=== PATIENT | female | born 1935 | race Caucasian/White ===

== ENCOUNTER 2020-05-23 08:57 | Outpatient (CLI) | payer MEDICARE, OTHER, SELFPAY ==
--- NOTE | ~2020-05-23 | US_ITS ---
EXAMINATION: US retroperitoneal comp, US retroperitoneal duplex ltd EXAM DATE: 05/23/2020 09:45 INDICATION: I10 - Essential (primary) hypertension, stage II chronic kidney disease. TECHNIQUE: Multiple grayscale and Doppler images of the kidneys were obtained (by a technologist who performed the scan) and subsequently reviewed. Multiple grayscale and Doppler images of the kidneys a nd renal arteries were obtained. There is no prior study for comparison. FINDINGS: Right kidney: Renal cortical thinning. There is normal contour and echogenicity. It measures 7.7 x 3 .5 x 3.5 centimeters. There are no focal renal lesions identified. There is no hydronephrosis. Left kidney: Poorly visualized. There is normal contour and echogenicity. It measures 11.8 x 3.7 x 4 .1 centimeters. There is a cyst measuring 1.5 cm. There is no hydronephrosis. Bladder unremarkable. Ureteral jets were not visualized. The aorta peak systolic velocity is 98 cm/s. The right renal artery peak systolic velocity is 66 cm/s in the proximal segment, 24 cm/s in the mid segment, and 69 cm/s in the distal segment. The left daniela al artery peak systolic velocity is 102 cm/s in the proximal segment, 51 cm/s in the mid segment, and 41 cm/s in the distal segment. IMPRESSION: 1. Mild to moderate bilateral renal atrophy. 2. Renal artery Doppler velocities within normal limits. Reviewed, dictated and finalized at location A. SUPERVISOR IMPRESSION: 1. Mild to moderate bilateral renal atrophy. 2. Renal artery Doppler velocities within normal limits.
== END 2020-05-23 08:58 | disposition home or self-care (01) ==
PROVIDERS: Family Provider Internal Medicine; PCP Internal Medicine; Visit Provider Nurse Practitioner
DX: I12.9 Hypertensive chronic kidney disease with stage 1 through stage 4 chronic kidney disease, or unspecified chronic kidney disease (principal); N18.2 Chronic kidney disease, stage 2 (mild)
CPT/HCPCS: 76770; 93976

== ENCOUNTER 2020-05-28 14:37 | Outpatient (CLI) | payer MEDICARE, OTHER, SELFPAY ==
--- NOTE | ~2020-05-28 | XR_ITS ---
XR lumbar spine min 4V DATE: 05/28/2020 15:01 INDICATION: Low back pain TECHNIQUE: AP, lateral, bilateral oblique and coned lateral lumbosacral views COMPARISON: 06/03/2016 MRI lumbar spine FINDINGS: There is mild dextroscoliosis of the lumbar spine. Moderate osteopenia. No fracture or bone destruction is evident. The lumbar pedicles are intact. No spondylolysis or spond ylolisthesis is detected. There is degenerative disc disease throughout the lumbar and lumbosacral spine, particular severe at L4-5 and L5-S1. The sacral iliac joints are intact. Osteoarthritic changes at both hip joints. There is extensive calcification of the descending thoracic and abdominal aorta without evidence of a neurysm. IMPRESSION: Multilevel degenerative disc disease Reviewed, dictated and finalized at location A. MIZATION ANALYST
== END 2020-05-28 14:38 | disposition home or self-care (01) ==
PROVIDERS: Family Provider Internal Medicine; PCP Internal Medicine; Visit Provider Internal Medicine
DX: M54.5 Low back pain (principal); M47.817 Spondylosis without myelopathy or radiculopathy, lumbosacral region; M16.0 Bilateral primary osteoarthritis of hip
CPT/HCPCS: 72110

== ENCOUNTER 2021-03-25 14:15 | Emergency (ER) | payer MEDICARE, OTHER, SELFPAY ==
[2021-03-25 14:21] VITALS: BP 140/67; PULSE 74; RESP 19; TEMP 36.3; O2SAT 100
--- NOTE | 2021-03-25 14:26 | ECG_ITS ---
Measurements Intervals [place] Rate: 69 P: 72 SD: 146 QRS: 14 QRSD: 85 T: 62 QT: 365 QTc: 393 Interpretive Statements SINUS RHYTHM LOW VOLTAGE- PRECORDIAL LEADS CONSIDER INFERIOR INFARCT, AGE INDETERMINATE BASELINE ARTIFACT- I, II, III, AVF ABNORMAL ECG Electronically Signed On 03-25-2021 16:26:43 UPHOLSTERY CLEANER by Lobito Mary D.O.
[2021-03-25 14:39] LABS: Basophils Percent Auto 0.3 % (0.2-1.2); Eosinophils Percent Auto 0.6 % (0-4.4); Hematocrit 39.7 % (37.0-47.0); Hemoglobin 13.8 g/dL (12.0-15.0); Immature Granulocyte Absolute 0.01 K/mm3 (0.00-0.031); Immature Granulocyte Percent A 0.1 % (0-0.5); Lymphocytes Absolute Auto 2.28 K/mm3 (0.9-3.2); Lymphocytes Percent Auto 32.1 % (18.3-44.2); Mean Corpuscular HGB Conc 34.8 g/dl (32-36); Mean Corpuscular Hemoglobin 31.6 pg (26-34); Mean Corpuscular Volume 90.8 fl (80-100); Mean Platelet Volume 10.4 fl (7.4-10.4); Monocytes Absolute Auto 0.6 K/mm3 (0.1-0.6); Monocytes Percent Auto 7.7 % (2.6-8.5); Neutrophils Absolute Auto 4.2 K/mm3 (1.3-6.7); Neutrophils Percent Auto 59.2 % (45.5-73.1); Platelet Count Result 261 k/mm3 (150-375); Red Blood Count 4.37 M/mm3 (4.2-5.4); Red Cell Distribution Width 12.7 % (11.5-14.5); White Blood Count 7.1 K/mm3 (4.5-10.0)
[2021-03-25 14:51] LABS: Alanine Aminotransferase 16 U/L (4-35); Albumin Level 4.6 g/dL (3.5-5.1); Alkaline Phosphatase 71 U/L (38-126); Anion Gap 7 mmol/L (8-16); Aspartate Amino Transferase 27 U/L (14-36); Bilirubin,Total 0.4 mg/dL (0.2-1.3); Blood Urea Nitrogen 20 mg/dL (7-17); Calcium 10.3 mg/dL (8.4-10.2); Carbon Dioxide 27 mmol/L (22-30); Chloride 104 mmol/L (98-107); Estimated CRCL calculation 26 ml/min; Estimated Glomerular Filt Rate 53; Glucose 123 mg/dL (65-110); Potassium 4.1 mmol/L (3.4-5.0); Sodium 138 mmol/L (137-145)
--- NOTE | 2021-03-25 16:10 | PC.NURSE ---
patient walked out of ED without difficulty and in no distress, patient's son states that he can take her to her PCP tomorrow.
== END 2021-03-26 03:52 | disposition left against medical advice (07) ==
PROVIDERS: Emergency Provider Emergency Medicine; PCP Internal Medicine
DX: R41.82 Altered mental status, unspecified (principal)
CPT/HCPCS: 36415; 80053; 85025; 93005; 99199

== ENCOUNTER 2021-07-22 10:08 | Emergency (ER) | payer MEDICARE, OTHER, SELFPAY ==
[2021-07-22 10:13] VITALS: BP 141/69; PULSE 80; RESP 16; TEMP 36.3; O2SAT 100
--- NOTE | 2021-07-22 10:30 | ED.AMS ---
HPI - Altered Mental Status General Chief Complaint: Altered Mental Status Stated Complaint: unccoperative behavior Time Seen by Provider: 07/22/21 10:22 Source: patient, EMS, RN notes reviewed and old records reviewed Mode of arrival: EMS Limitations: dementia History of Present Illness HPI narrative: 86 y/o female presents to the ER today via EMS for combative behavior. She has history of alzheimer's dementia. The custodial staff says that when she acts like this, she often has a UTI. They are saying that she was throwing shoes at people at the custodial. EMS reported that she was combative with them as well. The patient is calm and cooperative currently in the exam room. She is pleasant and answering questions. She is confused to place, time and situation but oriented to self. She denies having any pain and says that she feels well. She does say that she needs to urinate. Related Data Home Medications Medication Instructions Recorded Confirmed cyclosporine 0.05 % eye drops in a 1 drop EACH EYE Q12H 05/31/19 06/02/21 dropperette Allergies Allergy/AdvReac Type Severity Reaction Status Date / Time iodine Allergy Mild HIVES Verified 07/22/21 10:25 codeine Allergy Unknown Nausea Verified 07/22/21 10:25 hydrocodone Allergy Unknown Nausea Verified 07/22/21 10:25 morphine Allergy Unknown Nausea Verified 07/22/21 10:25 Review of Systems Constitutional: Constitutional: Denies chills and Denies fever(s) Eyes: Eyes: Reports no additional eye complaints ENT: Denies nasal congestion Cardiovascular: Cardiovascular: Denies chest pain Respiratory: Respiratory: Denies chest congestion and Denies dyspnea Gastrointestinal: Gastrointestinal: Denies abdominal pain, Denies diarrhea, Denies nausea and Denies vomiting Genitourinary: Genitourinary: Denies dysuria and Denies flank pain Musculoskeletal: Musculoskeletal: Denies back pain Integumentary/Breasts: Skin/Breast: Denies rash Neurologic: Reports confusion (chronic dementia) Psychiatric: Comments: combative behavior [facility] Past Medical History Medical History Cataracts, bilateral CKD (chronic kidney disease) HLD (hyperlipidemia) HTN (hypertension) IBS (irritable bowel syndrome) Late onset Alzheimer's disease without behavioral disturbance Macular degeneration Measles Mumps Nephritis Osteoarthritis Prediabetes Family History Family History Mother Diabetes mellitus Father Family history of lung cancer Social History Social History Smoking status: Never smoker Smoking end date: 05/03/69 Alcohol intake: current Alcohol use details: rarely Exam Const: General: no acute distress and alert HENMT: Head: normal to inspection Eyes: Conjunctivae: conjunctivae normal Neck: Neck: normal visual inspection Chest: Chest palpation & inspection: normal inspection of the chest Resp: Effort & Inspection: normal respiratory effort Auscultation: clear to auscultation bilaterally Cardio: Rate: regular rate Rhythm: regular rhythm GI: GI Palp: Yes Soft to palpation, No Tenderness to palpation present (GI) and No Guarding due to palpation present (GI) Auscultation: normal bowel sounds : General: Yes no CVA tenderness Skin: General skin exam: normal color Rashes: no rashes Neuro: General: no focal motor deficits Speech: normal speech Extrem: General: normal to inspection and no edema Psych: Thought content: Yes delusions (says that someone is going to kill the president and she needs to stop them) Course Course Emergency Course: uncomplicated Vital Signs Vital signs: Vital Signs Temperature 36.3 C L 07/22/21 10:13 Pulse Rate 80 07/22/21 10:13 Respiratory Rate 16 07/22/21 10:13 Blood Pressure 141/69 H 07/22/21 10:13 Pulse Oximetry 100
[2021-07-22 11:10] LABS: Basophils Percent Auto 0.6 % (0.2-1.2); Eosinophils Percent Auto 0.5 % (0-4.4); Hematocrit 39.5 % (37.0-47.0); Hemoglobin 13.2 g/dL (12.0-15.0); Immature Granulocyte Absolute 0.02 K/mm3 (0.00-0.031); Immature Granulocyte Percent A 0.3 % (0-0.5); Lymphocytes Absolute Auto 1.51 K/mm3 (0.9-3.2); Lymphocytes Percent Auto 22.7 % (18.3-44.2); Mean Corpuscular HGB Conc 33.4 g/dl (32-36); Mean Corpuscular Hemoglobin 31.7 pg (26-34); Mean Corpuscular Volume 94.7 fl (80-100); Mean Platelet Volume 10.2 fl (7.4-10.4); Monocytes Absolute Auto 0.5 K/mm3 (0.1-0.6); Neutrophils Absolute Auto 4.5 K/mm3 (1.3-6.7); Neutrophils Percent Auto 67.9 % (45.5-73.1); Platelet Count Result 267 k/mm3 (150-375); Red Blood Count 4.17 M/mm3 (4.2-5.4); Red Cell Distribution Width 13.3 % (11.5-14.5); White Blood Count 6.7 K/mm3 (4.5-10.0)
[2021-07-22 11:19] LABS: Add Urine Microscopic? NO; Appearance Urine Clear (Clear); Bilirubin Urine Negative (Negative); Blood Urine Negative (Negative); Color Urine Yellow (Yellow); Glucose Urine UA Negative (Negative); Ketones Urine Negative (Negative); Leukocyte Esterase Ur Negative LEU/UL (Negative); Nitrate Urine Negative (Negative); Protein Urine Negative (Negative); Urobilinogen Urine Negative mg/dL (<2.0)
[2021-07-22 11:25] LABS: Alanine Aminotransferase 16 U/L (4-35); Alkaline Phosphatase 65 U/L (38-126); Anion Gap 6 mmol/L (8-16); Aspartate Amino Transferase 27 U/L (14-36); Bilirubin,Total 0.5 mg/dL (0.2-1.3); Blood Urea Nitrogen 17 mg/dL (7-17); Calcium 9.1 mg/dL (8.4-10.2); Carbon Dioxide 28 mmol/L (22-30); Chloride 105 mmol/L (98-107); Estimated CRCL calculation 33 ml/min; Estimated Glomerular Filt Rate 59; Glucose 102 mg/dL (65-110); Potassium 4.2 mmol/L (3.4-5.0); Sodium 139 mmol/L (137-145)
--- NOTE | 2021-07-22 12:21 | PC.NURSE ---
Report called to [facility] to notify them that patient will be returning by EMS with follow up with her PCP. Nurse has no questions or concerns at this time. Ambulance called, ETA [id number]
[2021-07-22 12:38] VITALS: BP 125/69; PULSE 78; RESP 16
== END 2021-07-22 12:38 ==
PROVIDERS: Emergency Provider Nurse Practitioner Family; PCP Internal Medicine
DX: R45.6 Violent behavior (principal); G30.1 Alzheimer's disease with late onset; F02.80 Dementia in other diseases classified elsewhere, unspecified severity, without behavioral disturbance, psychotic disturbance, mood disturbance, and anxiety; I12.9 Hypertensive chronic kidney disease with stage 1 through stage 4 chronic kidney disease, or unspecified chronic kidney disease; N18.9 Chronic kidney disease, unspecified; K58.9 Irritable bowel syndrome, unspecified; H35.30 Unspecified macular degeneration; R73.03 Prediabetes; M19.90 Unspecified osteoarthritis, unspecified site
CPT/HCPCS: 36415; 80053; 81003; 85025; 99283

== ENCOUNTER 2022-05-01 10:51 | Emergency (ER) | payer MEDICARE, OTHER, SELFPAY ==
--- NOTE | ~2022-05-01 | XR_ITS ---
Clinical Indication: Cough PA and lateral views of the chest: Comparison: 03/13/2015 Findings: Stable calcified left basilar granuloma. The lungs are otherwise clear, without evidence of focal consolidation or pleural effusion. Cardiomediastinal silhouette is within normal limits. Bone s left shoulder arthroplasty again noted. Impression: No significant abnormality seen. Reviewed, dictated and finalized at location . BLACKER Impression: No significant abnormality seen.
[2022-05-01 11:02] VITALS: BP 160/59; PULSE 78; RESP 16; TEMP 37.4; O2SAT 100
[2022-05-01 11:08] VITALS: BP 160/59; PULSE 78; RESP 16; TEMP 37.4; O2SAT 100
--- NOTE | 2022-05-01 11:22 | ED.GENADULT ---
HPI - General Adult General Chief complaint: Upper Respiratory Infection Stated complaint: runny nose, diarrhea, congestion, cough Time Seen by Provider: 05/01/22 11:08 Source: patient, RN notes reviewed and old records reviewed Mode of arrival: ambulatory Limitations: no limitations History of Present Illness HPI narrative: 86 year old female who resides in assistive living facility accompanied by son present via wheelchair with complaints of weakness, cough, and congestion with runny nose some urine incontinence and some diarrhea with this being day 2 of symptoms. Son reports that she had COVID test this morning at facility which was negative. Son reports that his mother has had COVID vaccinations and also flu shot this season. MD complaint: weakness, cough, diarrhea, cough and congestion and runny nose, urine inct. Onset (ago): day(s) (day 2 of symptoms) Treatments prior to arrival: other (Tylenol, cough medication) Related Data Home Medications Medication Instructions Recorded Confirmed cyclosporine 0.05 % eye drops in a 1 drop ophthalmic (eye) Q12H 05/31/19 05/01/22 dropperette (Restasis) cholecalciferol (vitamin D3) 25 1,000 unit PO DAILY 10/01/21 05/01/22 mcg (1,000 unit) capsule vitamin B complex (B 1 tablet PO DAILY 10/01/21 05/01/22 Complex-Vitamin B12 tablet) memantine 5 mg tablet (Namenda) 5 mg PO BID 12/02/21 05/01/22 propylene glycol 0.6 % eye drops 1 drp EACH EYE TID 12/04/21 05/01/22 artificial tears solution eye drops 3 drp ophthalmic (eye) DAILY 05/01/22 05/01/22 Allergies Allergy/AdvReac Type Severity Reaction Status Date / Time iodine Allergy Mild HIVES Verified 05/01/22 11:02 codeine Allergy Unknown Nausea Verified 05/01/22 11:02 hydrocodone Allergy Unknown Nausea Verified 05/01/22 11:02 morphine Allergy Unknown Nausea Verified 05/01/22 11:02 Review of Systems Review of Systems: CONSTITUTIONAL: Reports low grade fever, chills, or sweats. EYES: Denies visual changes, redness, or discharge. ENT: Positive for rhinorrhea, congestion,no sore throat, or otalgia. CARDIOVASCULAR: Denies chest pain, palpitations, or edema. RESPIRATORY: Reports cough no dyspnea. GASTROINTESTINAL: Denies abdominal pain, nausea, vomiting, or diarrhea. GENITOURINARY: Denies dysuria or hematuria. SKIN: Denies rash or itching. MUSCULOSKELETAL: Denies back pain, joint pain, or myalgia. NEUROLOGIC: Denies headache, numbness, or weakness. PSYCHIATRIC: Denies anxiety or depression.history of dementia All systems reviewed & are unremarkable except as noted in HPI and below PMFSH Past Medical History Medical History (Updated 05/02/22 @ 00:01 by Saturnino Jesus) Cataracts, bilateral CKD (chronic kidney disease) HLD (hyperlipidemia) HTN (hypertension) IBS (irritable bowel syndrome) Late onset Alzheimer's disease without behavioral disturbance Macular degeneration Measles Mumps Nephritis Osteoarthritis Prediabetes Surgical History Surgical History (Updated 05/05/22 @ 16:24 by Gay Souza NP) History of arthroplasty of left shoulder Family History Family History Mother Diabetes mellitus Father Family history of lung cancer Social History Social History Smoking status: Never smoker Smoking end date: 05/03/69 Alcohol intake: former Alcohol use details: rarely Substance use: never Substance use type: does not use Gender identity (if verbalized by the patient): Female Comments At time of signature, agree with nursing past medical, surgical, social and family history. There is no relevant family history pertinent to the presenting complaint Exam Narrative: GENERAL: chronic ill-appearing, well-nourished, and in no acute distress. HEAD: Normocephalic, atraumatic. EYES: PERRLA and EOMI. ENT: Nares mild redness, clear rhinorrhea no epistaxis. Mucous membranes moist.TM's normal wi
== END 2022-05-01 13:04 ==
PROVIDERS: Emergency Provider Registered Nurse; PCP Internal Medicine
DX: J10.1 Influenza due to other identified influenza virus with other respiratory manifestations (principal); Z87.891 Personal history of nicotine dependence; H26.9 Unspecified cataract; E78.5 Hyperlipidemia, unspecified; H35.30 Unspecified macular degeneration; M19.90 Unspecified osteoarthritis, unspecified site; R73.03 Prediabetes; I12.9 Hypertensive chronic kidney disease with stage 1 through stage 4 chronic kidney disease, or unspecified chronic kidney disease; N18.9 Chronic kidney disease, unspecified; G30.1 Alzheimer's disease with late onset; F02.80 Dementia in other diseases classified elsewhere, unspecified severity, without behavioral disturbance, psychotic disturbance, mood disturbance, and anxiety
CPT/HCPCS: 71046; 81003; 87081; 87804; 87880; 99213; G0463

== ENCOUNTER 2023-01-05 10:07 | Observation (INO) | payer MEDICARE, OTHER, SELFPAY ==
[2023-01-05] VITALS (8 sets, daily range): BP systolic 157–188; BP diastolic 62–94; PULSE 69–88; RESP 16–20; TEMP 36.2–36.3; O2SAT 96–100; BMI 20.9
--- NOTE | ~2023-01-05 | MR_ITS ---
EXAMINATION: MR brain/brain stem wo/w con DATE: 01/06/2023 11:05 INDICATION: Transient ischemic attack. TECHNIQUE: Magnetic resonance imaging (MRI) of the brain and brainstem was performed without and with 10 mL MultiHance intravenous contrast. COMPARISON: Head CT 01/05/2023 FINDINGS: There are scattered areas of nonspecific increased T2-weighted signal intensity in the cere bral white matter and emmanuel. There is no intracranial hemorrhage, acute infarction, or abnormal intrac ranial mass lesion. The ventricles are normal in size. There are likely changes of ocular lens replac ement surgeries. The paranasal sinuses are clear. The mastoid air cells are normal. IMPRESSION: 1. Extensive nonspecific cerebral white matter disease and pontine disease, which likely represents c hronic small vessel ischemic disease. Reviewed, dictated and finalized at location A. IMPRESSION: 1. Extensive nonspecific cerebral white matter disease and pontine disease, whi ch likely represents chronic small vessel ischemic disease.
--- NOTE | ~2023-01-05 | CT_ITS ---
EXAMINATION: CT brain wo con DATE: 01/05/2023 14:37 INDICATION: Altered mental status. Hallucinations. TECHNIQUE: Computed tomography (CT) of the head was performed without intravenous contrast. The mA wa s adjusted according to patient size. Iterative reconstruction technique was employed. The dose-lengt h product was 681.00 mGy-cm. COMPARISON: None FINDINGS: There are scattered areas of low attenuation in the cerebral white matter. There is no intr acranial hemorrhage, acute infarction, or abnormal intracranial mass lesion. The ventricles are pranay l in size. The paranasal sinuses are clear. There are likely changes of ocular lens replacement surge yolis. The mastoid air cells are normal. IMPRESSION: 1. Extensive nonspecific cerebral white matter disease, which likely represents chronic small vessel ischemic disease. Reviewed, dictated and finalized at location A.
--- NOTE | ~2023-01-05 | CT_ITS ---
EXAMINATION: CTA brain carotid DATE: 01/08/2023 08:32 INDICATION: Transient ischemic attack. TECHNIQUE: Computed tomographic angiography (CTA) of the head was performed without and with 100 mL O [id number] intravenous contrast. CTA of the neck was performed with intravenous contrast. Automated exposure control and iterative reconstruction technique were employed. The dose-length product was 1 589.58 mGy-cm. Maximum intensity projection and volume rendered 3D-reconstructions were created by karl mackay technologist on a separate workstation. COMPARISON: Head CT 01/05/2023, brain MRI 01/06/2023 FINDINGS: HEAD CTA: There are scattered areas of low attenuation in the cerebral white matter. There is no intr acranial hemorrhage, acute infarction, or abnormal intracranial mass lesion. The ventricles are pranay l in size. The paranasal sinuses are clear. There are likely changes of ocular lens replacement surge yolis. The mastoid air cells are normal. The vertebral arteries are codominant. There is no significan t stenosis of basilar artery or the posterior cerebral arteries. The posterior communicating arteries are normal. There is no significant stenosis of the intracranial internal carotid arteries or anteri or or middle cerebral arteries. Anterior communicating artery is normal. There is no aneurysm. NECK CTA: Calcified mediastinal lymph nodes are consistent with old granulomatous disease. There is a 5 mm nodule in left thyroid lobe, likely not clinically significant. There is no significant stenosi s of the vertebral arteries. There is plaque in the proximal internal carotid arteries. There is 0% s tenosis of the proximal right internal carotid artery relative to normal distal artery lumen diameter (NASCET criteria). There is 14% stenosis of the proximal left internal carotid artery relative to no rmal distal artery lumen diameter. There is severe cervical spondylosis. IMPRESSION: 1. Extensive nonspecific cerebral white matter disease, which likely represents chronic small vessel ischemic disease. 2. No aneurysm or significant intracranial arterial stenosis. 3. 0% stenosis of the proximal right internal carotid artery relative to normal distal artery lumen d iameter (NASCET criteria). 4. 14% stenosis of the proximal left internal carotid artery relative to normal distal artery lumen d iameter. Reviewed, dictated and finalized at location A. IMPRESSION: 1. Extensive nonspecific cerebral white matter disease, which likely represents chronic small vessel ischemic disease. 2. No aneurysm or significant intracranial arterial stenosis. 3. 0% stenosis of the proximal right internal carotid artery relative to normal distal artery lumen diameter (NASCET criteria). 4. 14% stenosis of the proximal left internal carotid artery relative to normal distal artery lumen diameter.
--- NOTE | 2023-01-05 10:30 | ECG_ITS ---
Measurements Intervals [place] Rate: 68 P: 76 FL: 167 QRS: 5 QRSD: 89 T: 66 QT: 397 QTc: 425 Interpretive Statements SINUS RHYTHM BASELINE ARTIFACT- II, III, AVF, V6 NORMAL ECG COMPARED TO ECG 03/25/2021 14:29:55 NO SIGNIFICANT CHANGES Electronically Signed On 01-05-2023 14:08:31 CDT by Lobito Mary D.O.
[2023-01-05 11:27] LABS: Basophils Percent Auto 0.5 % (0.2-1.2); Eosinophils Absolute Auto 0.1 K/mm3 (0-0.3); Eosinophils Percent Auto 0.6 % (0-4.4); Hematocrit 42.7 % (37.0-47.0); Hemoglobin 14.1 g/dL (12.0-15.0); Immature Granulocyte Absolute 0.02 K/mm3 (0.00-0.031); Immature Granulocyte Percent A 0.2 % (0-0.5); Lymphocytes Absolute Auto 2.22 K/mm3 (0.9-3.2); Lymphocytes Percent Auto 27.7 % (18.3-44.2); Mean Corpuscular Hemoglobin 30.9 pg (26-34); Mean Corpuscular Volume 93.4 fl (80-100); Mean Platelet Volume 10.5 fl (7.4-10.4); Monocytes Absolute Auto 0.6 K/mm3 (0.1-0.6); Platelet Count Result 279 k/mm3 (150-375); Red Blood Count 4.57 M/mm3 (4.2-5.4); Red Cell Distribution Width 13.1 % (11.5-14.5)
[2023-01-05 11:37] LABS: INR 0.9; Prothrombin Time 12.9 Seconds (11.1-14.7)
[2023-01-05 11:38] LABS: Partial Thromboplastin Time 25.2 SECONDS (22.3-36.8)
[2023-01-05 11:43] LABS: Alanine Aminotransferase 21 U/L (6-35); Albumin Level 4.4 g/dL (3.5-5.1); Alkaline Phosphatase 58 U/L (38-126); Anion Gap 10 mmol/L (8-16); Aspartate Amino Transferase 31 U/L (14-36); Blood Urea Nitrogen 22 mg/dL (7-17); Calcium 9.4 mg/dL (8.4-10.2); Carbon Dioxide 28 mmol/L (22-30); Chloride 104 mmol/L (98-107); Estimated CRCL calculation 28 ml/min; Estimated Glomerular Filt Rate 52; Glucose 102 mg/dL (65-110); Potassium 4.1 mmol/L (3.4-5.0); Sodium 142 mmol/L (137-145)
[2023-01-05 11:52] LABS: Appearance Urine Clear (Clear); Bacteria Urine None Seen /hpf; Bilirubin Urine Negative (Negative); Blood Urine Negative (Negative); Color Urine Yellow (Yellow); Glucose Urine UA Negative (Negative); Ketones Urine Negative (Negative); Leukocyte Esterase Ur 1+ LEU/UL (Negative); Need Manual Microscopic Reviewed; Nitrate Urine Negative (Negative); Non Pathogenic Casts 0-2; Protein Urine 1+ mg/dL (Negative); RBC Urine 0-2 /hpf (0-2); Specific Grav Ur 1.016 (1.001-1.035); Squamous Epithelial Cell Urine None seen /hpf (Few); Urobilinogen Urine 0.2 mg/dL (<2.0); WBC Urine 0-5 /hpf; pH Urine 5.5 (5.0-9.0)
[2023-01-05 11:56] LABS: Add Urine Microscopic? YES
[2023-01-05 15:02] LABS: Influenza A QL RT-PCR Negative (Negative); Influenza B QL RT-PCR Negative (Negative); RSV RNA, RT-PCR Negative (Negative); SARS-CoV-2 RNA PCR Negative (Negative)
--- NOTE | 2023-01-05 16:06 | ED.AMS ---
HPI - Altered Mental Status General Chief Complaint: Altered Mental Status Stated Complaint: hallucination and agitation - hx alzheimer disease Time Seen by Provider: 01/05/23 13:39 History of Present Illness HPI narrative: 87-year-old female present to the emerged department for evaluation of increased confusion over the last 3 days and an episode of altered mental status and unresponsiveness this morning. Son states that at the care facility the patient was more agitated this morning and then had an episode of unresponsiveness. When he went to see the patient he found her curled into a ball and minimally responsive. He reports it took her approximately 45 minutes to return to her baseline. At time of evaluation the emergency department patient denies any complaints and patient is back to her typical baseline. Related Data Home Medications Medication Instructions Recorded Confirmed cyclosporine 0.05 % eye drops in a 1 drop ophthalmic (eye) BID 05/31/19 01/05/23 dropperette (Restasis) cholecalciferol (vitamin D3) 25 1,000 unit PO DAILY 10/01/21 01/05/23 mcg (1,000 unit) capsule propylene glycol 0.6 % eye drops 1 drp EACH EYE TID 12/04/21 01/05/23 artificial tears solution eye drops 3 drp ophthalmic (eye) DAILY 05/01/22 01/05/23 bismuth subsalicylate 262 mg/15 mL 524 mg PO QID PRN diarrhea 05/15/22 01/05/23 oral suspension (Pepto-Bismol) acetaminophen 500 mg tablet 1,000 mg PO Q8H PRN Pain (Scale 05/22/22 01/05/23 (Tylenol Extra Strength) Score 1-3) lactobacillus combination no.4 15 15,000 mmu cells PO DAILY 05/22/22 01/05/23 billion cell capsule (Senior Probiotic) memantine 5 mg tablet (Namenda) 10 mg PO QPM 01/05/23 01/05/23 neomycin-polymyxin B-dexameth eye 1 drp ophthalmic (eye) QID 01/05/23 01/05/23 drops,suspension Allergies Allergy/AdvReac Type Severity Reaction Status Date / Time iodine Allergy Mild HIVES Verified 01/05/23 10:08 codeine Allergy Unknown Nausea Verified 01/05/23 10:08 hydrocodone Allergy Unknown Nausea Verified 01/05/23 10:08 morphine Allergy Unknown Nausea Verified 01/05/23 10:08 Review of Systems Review of Systems: All systems reviewed & are unremarkable except as noted in HPI and below [facility] Past Medical History Medical History (Updated 01/06/23 @ 00:00 by Christiano Roy MD) Hyperlipidemia Hypertension Irritable bowel syndrome Late onset Alzheimer's disease without behavioral disturbance Macular degeneration Measles Mumps Nephritis Osteoarthritis Prediabetes Stage 3a chronic kidney disease Surgical History Surgical History (Updated 01/05/23 @ 19:22 by Fatuma Dawn PA-C) History of arthroplasty of left shoulder History of bilateral knee replacement History of cataract extraction Family History Family History Mother Diabetes mellitus Father Family history of lung cancer Social History Social History (Updated 01/05/23 @ 19:23 by Fatuma Dawn PA-C) Social History: Surrogate medical decision maker: Angel Sanchez, son. Code status: Do not resuscitate. Smoking status: Never smoker Alcohol intake: unknown Substance use: unknown Substance use type: does not use Lack of Transportation: No Lack of Food: Never True Current Housing: I Have Housing Concerned About Future Housing: No Difficulty Paying Gas/Electric Bills: No Difficulty Paying for Meds: No Currently Unemployed: No Education: High School Diploma/GED Difficulty w/ Childcare or Family Care: No Living arrangements: assisted living Additional living arrangements comments: Originally from [facility]. Her was in [employer], they , and she moved state side. He has since . Today have has 2 children, a son and a daughter. Additional occupation/education comments: She used to work at [employer]. Spiritual care concerns: No Exam Narrative: APPEARANCE:
--- NOTE | 2023-01-05 19:09 | ADMGEN ---
This patient, Subha Sanchez, was admitted to 2 Medical Room 243-01. Patient/family oriented to hospital policies and general routines including ID bracelet, bed and alarms, visiting hours, pain management, procedures, bathroom and other care routines, personal items, smoking policy, room service/diet, and visiting hours. Information on how to activate the Rapid Response Team has been discussed. Patient/Family are encouraged to report perceived risks to care and to ask questions if they do not understand what they are told or what they should do.
--- NOTE | 2023-01-05 19:19 | PM.IMHP ---
H&P: HPI History of Present Illness Date/Time: 01/05/23 17:00 Chief Complaint: Confusion. Narrative: This is a very pleasant 87-year-old female with dementia, hypertension, dyslipidemia who presented to the emergency department via private vehicle accompanied by her son from assisted living at the [facility] for evaluation of confusion. The patient provides the following history. Her son provides additional information, with the patient's permission. The last several days she has been hallucinating, friend since seeing her CT which couple of years ago, and she has been agitated. Earlier today she had an episode where she appeared to be alert but was unresponsive for a period of time. There were no reports of focal deficits or seizure-like activity with that episode. She was brought in today for concerns for possible seizure, stroke, or infection as she reportedly has a history of recurrent UTIs. She was afebrile on arrival to the emergency department. Blood pressures have been running pretty consistently in the 180s over 70s systolic. Remaining vital signs were normal. CMP and CBC were pretty much unremarkable. Urine does not look infected. She tested negative for flu, RSV, and COVID. Brain CT showed extensive nonspecific cerebral white matter disease which likely represents chronic small-vessel ischemic disease. She is being admitted in this setting for further evaluation observation. At the time my evaluation she is alert and oriented x3 but is not oriented to situation. She complains of some mild low back pain and dysuria but has no other complaints. She denies fever, chills, sweats, headache, focal weakness, paresthesias, visual changes, chest pain, shortness a breath, nausea, vomiting, and diarrhea. Review of Systems Review of Systems: 12 systems were reviewed and are negative except for as per HPI. [facility] Past Medical History Medical History (Updated 01/05/23 @ 22:48 by Fatuma Dawn PA-C) Hyperlipidemia Hypertension Irritable bowel syndrome Late onset Alzheimer's disease without behavioral disturbance Macular degeneration Measles Mumps Nephritis Osteoarthritis Prediabetes Stage 3a chronic kidney disease Surgical History Surgical History (Updated 01/05/23 @ 19:22 by Fatuma Dawn PA-C) History of arthroplasty of left shoulder History of bilateral knee replacement History of cataract extraction Family History Family History Mother Diabetes mellitus Father Family history of lung cancer Social History Social History (Updated 01/05/23 @ 19:23 by Fatuma Dawn PA-C) Social History: Surrogate medical decision maker: Angel Sanchez, son. Code status: Do not resuscitate. Smoking status: Never smoker Alcohol intake: unknown Substance use: unknown Substance use type: does not use Lack of Transportation: No Lack of Food: Never True Current Housing: I Have Housing Concerned About Future Housing: No Difficulty Paying Gas/Electric Bills: No Difficulty Paying for Meds: No Currently Unemployed: No Education: High School Diploma/GED Difficulty w/ Childcare or Family Care: No Living arrangements: assisted living Additional living arrangements comments: Originally from [facility]. Her was in [employer], they , and she moved state side. He has since . Today have has 2 children, a son and a daughter. Additional occupation/education comments: She used to work at [employer]. Spiritual care concerns: No Meds Home Medications and Allergies Home Medications Medication Instructions Recorded Confirmed Type cyclosporine 0.05 % eye drops in a 1 drop ophthalmic (eye) BID 05/31/19 01/05/23 History dropperette (Restasis) cholecalciferol (vitamin D3) 25 1,000 unit PO DAILY 10/01/21 01/05/23 History mcg (1,000 unit) capsule propylene gl
[2023-01-05] MEDS: QUEtiapine FUMARATE 25 MG TABLET PO (19:54)
[2023-01-05] MEDS: amLODIPine BESYLATE 5 MG TABLET PO (19:55)
[2023-01-06] VITALS (9 sets, daily range): BP systolic 140–145; BP diastolic 60–68; PULSE 64–85; RESP 17–20; TEMP 36.1–36.4; O2SAT 95–99
--- NOTE | 2023-01-06 | ECHO_ITS ---
Patient Info Name: Subha CRANE Age: 87 years : 1935 Gender: Female Ht: 62 in Wt: 121 lbs BSA: 1.55 m2 Heart Rhythm: Sinus Rhythm Technical Quality: Good Exam Date: 01/06/2023 2:15 PM Exam Location: [facility] Patient Status: Inpatient Admit Date: 01/05/2023 Staff Ordering Physician: ANAM JUAN Manager Art: Diana Linda RDCS Referring Physician: SAUL AGUILERA; Exam Type: CA echo doppler w bubble study Study Info Indications - TIA, ALTERED MENTAL STATUS Complete two-dimensional, color flow and Doppler transthoracic echocardiogram is performed with agitated saline. Summary 1. Left ventricular chamber dimension is normal. 2. Left ventricular systolic function is normal, estimated at 65-70%. 3. The left ventricular diastolic function is grade I diastolic dysfunction. 4. E/e' 11 is mildly elevated. 5. No pulmonary hypertension, estimated pulmonary arterial systolic pressure is 25 mmHg. Left Ventricle E/e' 11 is mildly elevated. Left ventricular chamber dimension is normal. Left ventricular systolic function is normal, estimated at 65-70%. The left ventricular diastolic function is grade I diastolic dysfunction. Right Ventricle Right ventricular systolic function is normal and with normal TAPSE 2.2 cm. Right ventricular chamber dimension is normal. Left Atria Left atrial chamber dimension is normal. Right Atria Right atrial chamber dimension is normal. Atrial Septum Agitated saline injection with and without valsalva maneuver opacified right side cardiac chambers without shunt to left cardiac chambers. Intact interatrial septum visualized by 2D and agitated saline imaging. Aortic Valve The aortic valve is trileaflet. There is no aortic valve stenosis. There is no aortic valve regurgitation. Pulmonic Valve There is no pulmonic regurgitation. Mitral Valve There is no mitral valve stenosis. There is no mitral valve regurgitation. Tricuspid Valve There is no tricuspid valve regurgitation. No pulmonary hypertension, estimated pulmonary arterial systolic pressure is 25 mmHg. Pericardium/Pleural There is no pericardial effusion. Inferior Vena Cava Normal inferior vena cava with >50% collapse upon inspiration consistent with normal right atrial pressure, 5 mmHg. Aorta The aortic root size at the sinus of Valsalva is normal. Left Ventricular Outflow Tract Name Value Normal LVOT 2D LVOT Diameter 2.0 cm LVOT Doppler LVOT Peak Gradient 4 mmHg LVOT Mean Gradient 2 mmHg LVOT VTI 21 cm LVOT VTI/AV VTI Ratio 0.9 LVOT Stroke Volume 64 ml LVOT CO 5.3 l/min LVOT CI 3.4 l/min/m2 Pulmonic Valve Name Value Normal RVOT Doppler
[2023-01-06 05:52] LABS: Anion Gap 7 mmol/L (8-16); Blood Urea Nitrogen 17 mg/dL (7-17); Calcium 9.9 mg/dL (8.4-10.2); Carbon Dioxide 32 mmol/L (22-30); Chloride 105 mmol/L (98-107); Estimated CRCL calculation 31 ml/min; Estimated Glomerular Filt Rate 59; Glucose 97 mg/dL (65-110); Magnesium 2.2 mg/dL (1.6-2.3); Potassium 4.5 mmol/L (3.4-5.0); Sodium 144 mmol/L (137-145)
[2023-01-06 05:54] LABS: Amphetamine Screen Urine Negative (Negative); Barbiturate Screen Urine Negative (Negative); Benzodiazepines Screen Urine Negative (Negative); Cannabinoid Screen Urine Negative (Negative); Cocaine Screen Urine Negative (Negative); Methadone Screen Urine Negative (Negative); Opiate Screen Urine Negative (Negative); Phencyclidine Screen Urine Negative (Negative)
[2023-01-06 07:13] LABS: Folic Acid 18.2 ng/mL (2.76->20)
[2023-01-06] MEDS: EZETIMIBE 10 MG TABLET PO (08:42)
[2023-01-06] MEDS: CHOLECALCIFEROL 1,000 UNITS TABLET 1000 UNITS PO (08:42)
[2023-01-06] MEDS: ACIDOPHILUS/BULGARICUS CHEWABLE TABLET 1 TABLET PO (08:42)
[2023-01-06] MEDS: amLODIPine BESYLATE 5 MG TABLET PO (08:42)
[2023-01-06] MEDS: ARTIFICIAL TEARS OPHTH SOLN 15 ML BOTTLE 3 DROP EACH EYE (08:43)
[2023-01-06] MEDS: NEOMYCIN/POLYMYXIN/DEXAMETH OP SUSP 5 ML BTL 1 DROP EACH EYE (08:44)
[2023-01-06] MEDS: cycloSPORINE 0.4 ML OPHTH SOLUTION 1 DROP EACH EYE ×2 (08:47→17:37)
--- NOTE | 2023-01-06 09:40 | PM.IMPN ---
Progress Note: A&P Assessment and Plan (1) Unresponsive episode: Code(s): R40.4 - Transient alteration of awareness Status: Acute Assessment and Plan: Unsure of etiology, likely multifactorial Follow-up MRI, EEG and neuro consultation (2) Confusion: Code(s): R41.0 - Disorientation, unspecified Status: Acute Assessment and Plan: Appears improved from yesterday Check TSH, B12 (3) Dementia: Qualifiers: Alzheimer's disease onset: late-onset Dementia behavioral disturbance: with behavioral disturbance Dementia type: Alzheimer's Qualified Code(s): G30.1 - Alzheimer's disease with late onset; F02.81 - Dementia in other diseases classified elsewhere with behavioral disturbance Code(s): F03.90 - Unspecified dementia, unspecified severity, without behavioral disturbance, psychotic disturbance, mood disturbance, and anxiety Status: Acute Assessment and Plan: Likely exacerbating current symptoms (4) Hypertension: Code(s): I10 - Essential (primary) hypertension Status: Acute Assessment and Plan: Blood pressures reviewed 01/06 (5) Stage 3a chronic kidney disease: Code(s): N18.31 - Chronic kidney disease, stage 3a Status: Acute Assessment and Plan: Monitor creatinine, stable at 0.9 today Plan DVT prophylaxis with SCDs GI prophylaxis not indicated Code status DNR Subjective Date/time seen: 01/06/23 09:40 Interval history: A 7-year-old female with history of dementia, hypertension, hyperlipidemia is presenting from assisted living with altered mental status. No overnight events noted. No chest pain or shortness of breath. No nausea, vomiting or diarrhea. No fevers or chills. Review of Systems Review of Systems: 12 point review of systems was assessed and was negative except as noted in the HPI Exam Narrative: General: No acute distress, alert and oriented per baseline HEENT: Atraumatic, normocephalic, mucous membranes moist CV: Regular rate and rhythm, S1, S2 Lungs: Clear to auscultation bilaterally, no rales or crackles noted, no wheezes, good air entry Abdomen: Soft, nontender, nondistended Extremities: Normal to inspection Skin: No rashes noted, no lesions or wounds seen Psych: Difficult to assess Neuro: Cranial nerves 2-12 grossly intact, strength +5/5 upper and lower extremities bilaterally, no focal deficits, however, patient does appear to be somewhat slowed and sluggish to respond both mentally and physically, no noted tremor at this time Objective Data Vital Signs Vital Signs: Vital Signs - 24 hr 01/05/23 11:03 01/05/23 16:11 01/05/23 16:13 Temperature 97.2 F L Pulse Rate 69 88 82 Respiratory Rate 16 20 Blood Pressure 157/62 H 182/94 H Pulse Oximetry 100 100 Oxygen Delivery Room Air 01/05/23 17:49 01/05/23 18:02 01/05/23 19:27 Temperature 97.4 F L Pulse Rate 78 78 80 Respiratory Rate 20 18 18 Blood Pressure 182/76 H 188/72 H 187/77 H Pulse Oximetry 96 96 100 Oxygen Delivery 01/05/23 20:00 01/05/23 20:00 01/05/23 21:23 Temperature Pulse Rate 78 Respiratory Rate Blood Pressure Pulse Oximetry 100 Oxygen Delivery Room Air Room Air 01/06/23 00:00 01/06/23 04:00 01/06/23 06:00 Temperature 97.0 F L Pulse Rate 69 64 75 Respiratory Rate 18 Blood Pressure 145/62 H Pulse Oximetry 95 Oxygen Delivery Intake/Output Intake/Output: Intake & Output 01/03/23 01/04/23 01/05/23 01/06/23 23:59 23:59 23:59 23:59 Intake Total 460 Balance 460 Meds/Results Medications: Active Medications Generic Name Dose Route Start Last Admin Trade Name Freq PRN Reason Stop Dose Admin Acetaminophen 650 mg 01/05/23 22:51 Acetaminophen 325 Mg Tablet PO Q6H PRN Mild Pain (1-3) or Fever Amlodipine Besylate 5 mg 01/06/23 09:00 01/06/23 08:42 Amlodipine Besylate 5 Mg Tablet PO
[2023-01-06] MEDS: NEOMYCIN/POLYMYXIN/DEXAMETH OP SUSP 5 ML BTL 1 DROP RIGHT EYE ×3 (12:45→20:33)
--- NOTE | 2023-01-06 14:01 | WPDNEURCNPN ---
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 She was more agitated curl up and minimally responsive the whole episode lasted for about 45 minutes and then she returned to the baseline patient has been taking memantine 5 mg tablet 2 of them every evening in addition she is allergic to iodine, codeine, hydrocodone, and morphine, additionally she has history of irritable bowel syndrome, Alzheimer's disease with behavioral disturbances, macular degeneration, and chronic kidney disease stage 3 a, she has undergone left shoulder arthroplasty and bilateral knee replacement in addition to cataract extraction, she has never a smoker, her initial evaluation revealed her to have normal vital signs with hypertension normal CBC normal BMP normal routine lab along with being negative for viral infections, CT scan documented extensive nonspecific white matter disease, MRI documented extensive nonspecific white matter involvement including the pontine area, and CT scan of the head did not document any hydrocephalus Review of Systems Review of Systems: All systems reviewed & are unremarkable except as noted in HPI and below PMFSH Past Medical History Medical History (Updated 01/06/23 @ 00:00 by Christiano Roy MD) Hyperlipidemia Hypertension Irritable bowel syndrome Late onset Alzheimer's disease without behavioral disturbance Macular degeneration Measles Mumps Nephritis Osteoarthritis Prediabetes Stage 3a chronic kidney disease Surgical History Surgical History (Updated 01/05/23 @ 19:22 by Fatuma Dawn PA-C) History of arthroplasty of left shoulder History of bilateral knee replacement History of cataract extraction Family History Family History Mother Diabetes mellitus Father Family history of lung cancer Social History Social History (Updated 01/05/23 @ 19:23 by Fatuma Dawn PA-C) Social History: Surrogate medical decision maker: Angel Sanchez, bindu. Code status: Do not resuscitate. Smoking status: Never smoker Alcohol intake: unknown Substance use: unknown Substance use type: does not use Lack of Transportation: No Lack of Food: Never True Current Housing: I Have Housing Concerned About Future Housing: No Difficulty Paying Gas/Electric Bills: No Difficulty Paying for Meds: No Currently Unemployed: No Education: High School Diploma/GED Difficulty w/ Childcare or Family Care: No Living arrangements: assisted living Additional living arrangements comments: Originally from [facility], [place]. Her was in [employer], they , and she moved state side. He has since .
--- NOTE | 2023-01-06 14:15 | ECHO_ITS ---
Patient Info Name: Subha Sanchez Age: 87 years : 1935 Gender: Female Ht: 62 in Wt: 121 lbs BSA: 1.55 m2 HR: 82 bpm BP: 145 / 62 mmHg Technical Quality: Fair Exam Date: 01/06/2023 2:15 PM Exam Location: [facility] Patient Status: Inpatient Admit Date: 01/05/2023 Staff Ordering Physician: Valeri John DO Enrollment Clerk: Diana Linda RDCS Attending Provider: Zachary Lamar MD Exam Type: CA echo doppler w bubble study Study Info Indications - TIA - ALTERED MENTAL STATUS Complete two-dimensional, color flow and Doppler transthoracic echocardiogram is performed with agitated saline. Contrast/Agitated Saline Contrast/Ag. Saline: Agitated Saline Amount: 20.00 ml Administered By: Diana Linda RDCS Existing IV Access: Yes IV Access Condition: patent with no signs of infiltration Summary 1. Left ventricular chamber dimension is normal. 2. Left ventricular systolic function is normal, estimated at 65-70%. 3. The left ventricular diastolic function is grade I diastolic dysfunction. 4. E/e' 11 is mildly elevated. Left Ventricle E/e' 11 is mildly elevated. Left ventricular chamber dimension is normal. Left ventricular systolic function is normal, estimated at 65-70%. The left ventricular diastolic function is grade I diastolic dysfunction. Right Ventricle Right ventricular systolic function is normal and with normal TAPSE 2.2 cm. Right ventricular chamber dimension is normal. Left Atria Left atrial chamber dimension is normal. Right Atria Right atrial chamber dimension is normal. Atrial Septum Agitated saline injection with and without valsalva maneuver opacified right side cardiac chambers without shunt to left side cardiac chambers. Intact interatrial septum visualized by 2D and agitated saline imaging. Aortic Valve The aortic valve is trileaflet. There is no aortic valve stenosis. There is no aortic valve regurgitation. Pulmonic Valve There is no pulmonic regurgitation. Mitral Valve There is no mitral valve stenosis. There is no mitral valve regurgitation. Tricuspid Valve There is no tricuspid valve regurgitation. Pericardium/Pleural There is no pericardial effusion. Inferior Vena Cava Normal inferior vena cava with >50% collapse upon inspiration consistent with normal right atrial pressure, 5 mmHg. Aorta The aortic root size at the sinus of Valsalva is normal. Tricuspid Valve Name Value Normal Estimated PAP/RSVP RA Pressure 5 mmHg <=5 Report Signatures
[2023-01-06] MEDS: MEMANTINE 5 MG TABLET 10 MG PO (17:37)
[2023-01-06] MEDS: QUEtiapine FUMARATE 25 MG TABLET PO (20:33)
[2023-01-07] VITALS (10 sets, daily range): BP systolic 134–152; BP diastolic 66–71; PULSE 67–80; RESP 18–21; TEMP 35.9–36.6; O2SAT 98–100
--- NOTE | 2023-01-07 08:37 | PM.IMPN ---
Progress Note: A&P Assessment and Plan (1) Unresponsive episode: Code(s): R40.4 - Transient alteration of awareness Status: Acute Assessment and Plan: Unsure of etiology, likely multifactorial MRI, EEG, all within normal limits Check head/neck CTA Echo cancelled (2) Confusion: Code(s): R41.0 - Disorientation, unspecified Status: Acute Assessment and Plan: Appears improved from yesterday Check TSH, B12, all wnl (3) Dementia: Qualifiers: Alzheimer's disease onset: late-onset Dementia behavioral disturbance: with behavioral disturbance Dementia type: Alzheimer's Qualified Code(s): G30.1 - Alzheimer's disease with late onset; F02.81 - Dementia in other diseases classified elsewhere with behavioral disturbance Code(s): F03.90 - Unspecified dementia, unspecified severity, without behavioral disturbance, psychotic disturbance, mood disturbance, and anxiety Status: Acute Assessment and Plan: Likely exacerbating current symptoms (4) Hypertension: Code(s): I10 - Essential (primary) hypertension Status: Acute Assessment and Plan: Blood pressures reviewed 01/07 (5) Stage 3a chronic kidney disease: Code(s): N18.31 - Chronic kidney disease, stage 3a Status: Acute Assessment and Plan: Monitor creatinine, stable Plan DVT prophylaxis with SCDs GI prophylaxis not indicated Code status DNR Subjective Date/time seen: 01/07/23 08:37 Interval history: 87-year-old female with history of dementia, hypertension, hyperlipidemia is presenting from assisted living with altered mental status. No overnight events noted. No chest pain or shortness of breath. No nausea, vomiting or diarrhea. No fevers or chills. Review of Systems Review of Systems: 12 point review of systems was assessed and was negative except as noted in the HPI Exam Narrative: General: No acute distress, alert and oriented per baseline HEENT: Atraumatic, normocephalic, mucous membranes moist CV: Regular rate and rhythm, S1, S2 Lungs: Clear to auscultation bilaterally, no rales or crackles noted, no wheezes, good air entry Abdomen: Soft, nontender, nondistended Extremities: Normal to inspection Skin: No rashes noted, no lesions or wounds seen Psych: Difficult to assess Neuro: Cranial nerves 2-12 grossly intact, strength +5/5 upper and lower extremities bilaterally, no focal deficits Objective Data Vital Signs Vital Signs: Vital Signs - 24 hr 01/06/23 14:00 01/06/23 12:00 01/06/23 16:00 Temperature 97.6 F Pulse Rate 72 81 85 Respiratory Rate 17 Blood Pressure 141/60 H Pulse Oximetry 96 Oxygen Delivery 01/06/23 20:01 01/06/23 21:54 01/07/23 00:03 Temperature 97.1 F L Pulse Rate 74 75 67 Respiratory Rate 20 Blood Pressure 140/68 Pulse Oximetry 99 Oxygen Delivery 01/07/23 04:00 01/07/23 06:00 01/07/23 07:57 Temperature 96.6 F L Pulse Rate 72 76 Respiratory Rate 21 H Blood Pressure 152/67 H Pulse Oximetry 100 98 Oxygen Delivery Room Air Intake/Output Intake/Output: Intake & Output 01/04/23 01/05/23 01/06/23 01/07/23 23:59 23:59 23:59 23:59 Intake Total 700 Balance 700 Meds/Results Medications: Active Medications Generic Name Dose Route Start Last Admin Trade Name Mattq PRN Reason Stop Dose Admin Acetaminophen 650 mg 01/05/23 22:51 Acetaminophen 325 Mg Tablet PO Q6H PRN Mild Pain (1-3) or Fever Amlodipine Besylate 5 mg 01/06/23 09:00 01/06/23 08:42 Amlodipine Besylate 5 Mg Tablet PO 5 mg DAILY JAXSON Administration Artificial Tears 3 drop 01/06/23 09:00 01/06/23 08:43 Artificial Tears Ophth Soln 15 Ml Bottle EACH EYE 02/05/23 08:59 3 drop DAILY JAXSON Administration Bismuth Subsalicylate 524 mg 01/05/23 19:28 Bismuth Subsalicylate 262 Mg Chewable Tablet PO QID PRN diarrhea Cy
[2023-01-07] MEDS: cycloSPORINE 0.4 ML OPHTH SOLUTION 1 DROP EACH EYE ×2 (09:34→17:30)
[2023-01-07] MEDS: NEOMYCIN/POLYMYXIN/DEXAMETH OP SUSP 5 ML BTL 1 DROP RIGHT EYE ×4 (09:35→20:27)
[2023-01-07] MEDS: CHOLECALCIFEROL 1,000 UNITS TABLET 1000 UNITS PO (09:35)
[2023-01-07] MEDS: EZETIMIBE 10 MG TABLET PO (09:35)
[2023-01-07] MEDS: amLODIPine BESYLATE 5 MG TABLET PO (09:35)
[2023-01-07] MEDS: ARTIFICIAL TEARS OPHTH SOLN 15 ML BOTTLE 3 DROP EACH EYE (09:35)
[2023-01-07] MEDS: ACIDOPHILUS/BULGARICUS CHEWABLE TABLET 1 TABLET PO (09:35)
--- NOTE | 2023-01-07 09:59 | WPDNEUROLOGY ---
Neurology EEG Report General Information Date of Study: 01/06/23 TEST eeg DIAGNOSIS unresponsiveness CONDITION OF RECORDING drowsy and sleep EEG NUMBER [id number] CLINICAL HISTORY patient's son brought the patient into hospital yesterday due to her becoming unresponsive for a few seconds in addition to the ongoing history of dementia. EEG DESCRIPTION basic resting occipital frequency consists of low to medium voltage 8 to 10 hertz per 2nd alpha with low-voltage 15 to 18 hertz per 2nd beta and intermittent low voltage 5 to 7 hertz per 2nd theta activity. Poor nikole posterior gradients. Low-voltage beta activity seen diffusely admixed with bilateral symmetrical sleep activity. Hyperventilation not done photic stimulation not done. Non paroxysmal. Nonfocal. Nonlateralizing. IMPRESSION Mildly abnormal record due to presence of excessive amount of slow activity. This abnormality could be suggestive of underlying organic or metabolic encephalopathy, clinical correlation recommended. there is no evidence of paroxysmal seizure-like activity.
[2023-01-07 14:44] LABS: Basophils Percent Auto 0.3 % (0.2-1.2); Eosinophils Percent Auto 0.5 % (0-4.4); Hematocrit 41.8 % (37.0-47.0); Hemoglobin 13.9 g/dL (12.0-15.0); Immature Granulocyte Absolute 0.03 K/mm3 (0.00-0.031); Immature Granulocyte Percent A 0.4 % (0-0.5); Lymphocytes Absolute Auto 1.45 K/mm3 (0.9-3.2); Lymphocytes Percent Auto 18.9 % (18.3-44.2); Mean Corpuscular HGB Conc 33.3 g/dl (32-36); Mean Corpuscular Hemoglobin 31.2 pg (26-34); Mean Corpuscular Volume 93.9 fl (80-100); Mean Platelet Volume 10.5 fl (7.4-10.4); Monocytes Absolute Auto 0.7 K/mm3 (0.1-0.6); Monocytes Percent Auto 8.7 % (2.6-8.5); Neutrophils Absolute Auto 5.5 K/mm3 (1.3-6.7); Neutrophils Percent Auto 71.2 % (45.5-73.1); Platelet Count Result 254 k/mm3 (150-375); Red Blood Count 4.45 M/mm3 (4.2-5.4); Red Cell Distribution Width 13.2 % (11.5-14.5); White Blood Count 7.7 K/mm3 (4.5-10.0)
[2023-01-07 14:54] LABS: Alanine Aminotransferase 21 U/L (6-35); Albumin Level 4.1 g/dL (3.5-5.1); Alkaline Phosphatase 54 U/L (38-126); Anion Gap 9 mmol/L (8-16); Aspartate Amino Transferase 26 U/L (14-36); Bilirubin,Total 0.5 mg/dL (0.2-1.3); Blood Urea Nitrogen 20 mg/dL (7-17); Calcium 9.2 mg/dL (8.4-10.2); Carbon Dioxide 27 mmol/L (22-30); Chloride 104 mmol/L (98-107); Estimated CRCL calculation 28 ml/min; Estimated Glomerular Filt Rate 52; Glucose 123 mg/dL (65-110); Potassium 3.8 mmol/L (3.4-5.0); Sodium 140 mmol/L (137-145)
[2023-01-07] MEDS: MEMANTINE 5 MG TABLET 10 MG PO (17:29)
[2023-01-07] MEDS: predniSONE 40 MG, predniSONE 10 MG 50 MG PO (18:53)
[2023-01-07] MEDS: QUEtiapine FUMARATE 25 MG TABLET PO (20:27)
[2023-01-08 00:04] VITALS: PULSE 73
[2023-01-08] MEDS: methylPREDNISolone SOD SUCC 125 MG VIAL (01:50)
[2023-01-08 04:00] VITALS: PULSE 76
--- NOTE | 2023-01-08 05:17 | PC.NURSE ---
reviewed and aqree with all charting and documentation by matt Huitron.
[2023-01-08 05:25] LABS: Hematocrit 42.2 % (37.0-47.0); Hemoglobin 14.2 g/dL (12.0-15.0); Immature Granulocyte Absolute 0.02 K/mm3 (0.00-0.031); Immature Granulocyte Percent A 0.4 % (0-0.5); Lymphocytes Absolute Auto 0.76 K/mm3 (0.9-3.2); Lymphocytes Percent Auto 14.5 % (18.3-44.2); Mean Corpuscular HGB Conc 33.6 g/dl (32-36); Mean Corpuscular Hemoglobin 31.3 pg (26-34); Mean Corpuscular Volume 93.2 fl (80-100); Mean Platelet Volume 10.5 fl (7.4-10.4); Monocytes Percent Auto 0.4 % (2.6-8.5); Neutrophils Absolute Auto 4.5 K/mm3 (1.3-6.7); Neutrophils Percent Auto 84.7 % (45.5-73.1); Platelet Count Result 254 k/mm3 (150-375); Red Blood Count 4.53 M/mm3 (4.2-5.4); White Blood Count 5.3 K/mm3 (4.5-10.0)
[2023-01-08 05:40] LABS: Alanine Aminotransferase 19 U/L (6-35); Alkaline Phosphatase 59 U/L (38-126); Anion Gap 10 mmol/L (8-16); Aspartate Amino Transferase 22 U/L (14-36); Bilirubin,Total 0.5 mg/dL (0.2-1.3); Blood Urea Nitrogen 27 mg/dL (7-17); Calcium 9.5 mg/dL (8.4-10.2); Carbon Dioxide 25 mmol/L (22-30); Chloride 104 mmol/L (98-107); Estimated CRCL calculation 25 ml/min; Estimated Glomerular Filt Rate 47; Glucose 161 mg/dL (65-110); Potassium 4.1 mmol/L (3.4-5.0); Sodium 139 mmol/L (137-145)
[2023-01-08] MEDS: methylPREDNISolone SOD SUCC 125 MG VIAL IV PUSH (06:02)
[2023-01-08 06:24] VITALS: BP 149/75; PULSE 81; RESP 20; TEMP 35.9; O2SAT 98
[2023-01-08] MEDS: diphenhydrAMINE HCl INJ 50 MG/ML VIAL 25 MG IV PUSH (06:25)
[2023-01-08 08:00] VITALS: PULSE 77
[2023-01-08] MEDS: amLODIPine BESYLATE 5 MG TABLET PO (09:09)
[2023-01-08] MEDS: ACIDOPHILUS/BULGARICUS CHEWABLE TABLET 1 TABLET PO (09:09)
[2023-01-08] MEDS: CHOLECALCIFEROL 1,000 UNITS TABLET 1000 UNITS PO (09:10)
[2023-01-08] MEDS: EZETIMIBE 10 MG TABLET PO (09:10)
[2023-01-08] MEDS: cycloSPORINE 0.4 ML OPHTH SOLUTION 1 DROP EACH EYE (09:10)
[2023-01-08] MEDS: NEOMYCIN/POLYMYXIN/DEXAMETH OP SUSP 5 ML BTL 1 DROP RIGHT EYE ×2 (09:10→13:01)
[2023-01-08] MEDS: ARTIFICIAL TEARS OPHTH SOLN 15 ML BOTTLE 3 DROP EACH EYE (09:10)
--- NOTE | 2023-01-08 11:07 | PCOTNOTE ---
The patient treatment was not able to be completed. Patient was sleeping upon arrival and just finished a few before that per Son report. Patient was to tired at this time to actively participate. Will plan to continue treatment per plan of care.
[2023-01-08 12:00] VITALS: PULSE 96
--- NOTE | 2023-01-08 13:38 | PM.IMPN ---
Progress Note: A&P Assessment and Plan (1) Unresponsive episode: Code(s): R40.4 - Transient alteration of awareness Status: Acute Assessment and Plan: Unsure of etiology, likely multifactorial MRI, EEG, all within normal limits Check head/neck CTA Echo cancelled Could be post ictal state, concussive state, suspect acute metabolic encephalopathy of unknown etiology (2) Confusion: Code(s): R41.0 - Disorientation, unspecified Status: Acute Assessment and Plan: Appears improved from yesterday Check TSH, B12, all wnl see above (3) Dementia: Qualifiers: Dementia type: Alzheimer's Alzheimer's disease onset: late-onset Dementia behavioral disturbance: with behavioral disturbance Qualified Code(s): G30.1 - Alzheimer's disease with late onset; F02.81 - Dementia in other diseases classified elsewhere with behavioral disturbance Code(s): F03.90 - Unspecified dementia, unspecified severity, without behavioral disturbance, psychotic disturbance, mood disturbance, and anxiety Status: Acute Assessment and Plan: Likely exacerbating current symptoms (4) Hypertension: Code(s): I10 - Essential (primary) hypertension Status: Acute Assessment and Plan: Blood pressures reviewed 01/08 (5) Stage 3a chronic kidney disease: Code(s): N18.31 - Chronic kidney disease, stage 3a Status: Acute Assessment and Plan: Monitor creatinine, stable Plan DVT prophylaxis with SCDs GI prophylaxis not indicated Code status DNR Subjective Date/time seen: 01/08/23 13:38 Interval history: 87-year-old female with history of dementia, hypertension, hyperlipidemia is presenting from assisted living with altered mental status. No overnight events noted. No chest pain or shortness of breath. No nausea, vomiting or diarrhea. No fevers or chills. Review of Systems Review of Systems: 12 point review of systems was assessed and was negative except as noted in the HPI Exam Narrative: General: No acute distress, alert and oriented per baseline HEENT: Atraumatic, normocephalic, mucous membranes moist CV: Regular rate and rhythm, S1, S2 Lungs: Clear to auscultation bilaterally, no rales or crackles noted, no wheezes, good air entry Abdomen: Soft, nontender, nondistended Extremities: Normal to inspection Skin: No rashes noted, no lesions or wounds seen Psych: Difficult to assess Neuro: Cranial nerves 2-12 grossly intact, strength +5/5 upper and lower extremities bilaterally, no focal deficits Objective Data Vital Signs Vital Signs: Vital Signs - 24 hr 01/07/23 14:00 01/07/23 14:50 01/07/23 16:00 Temperature 98 F Pulse Rate 80 79 Respiratory Rate 18 Blood Pressure 134/71 Pulse Oximetry 98 Oxygen Delivery Room Air 01/07/23 21:55 01/07/23 22:05 01/08/23 00:04 Temperature 97.5 F L Pulse Rate 73 76 73 Respiratory Rate 21 H Blood Pressure 146/66 H Pulse Oximetry 100 Oxygen Delivery 01/08/23 04:00 01/08/23 06:24 01/08/23 09:05 Temperature 96.7 F L Pulse Rate 76 81 Respiratory Rate 20 Blood Pressure 149/75 H Pulse Oximetry 98 Oxygen Delivery Room Air 01/08/23 08:00 Temperature Pulse Rate 77 Respiratory Rate Blood Pressure Pulse Oximetry Oxygen Delivery Intake/Output Intake/Output: Intake & Output 01/05/23 01/06/23 01/07/23 01/08/23 23:59 23:59 23:59 23:59 Intake Total 700 960 240 Output Total 200 Balance 700 960 40 Meds/Results Medications: Active Medications Generic Name Dose Route Start Last Admin Trade Name Freq PRN Reason Stop Dose Admin Acetaminophen 650 mg 01/05/23 22:51 Acetaminophen 325 Mg Tablet PO Q6H PRN Mild Pain (1-3) or Fever Amlodipine Besylate 5 mg 01/06/23 09:00 01/08/23 09:09 Amlodipine Besylate 5 Mg Tablet PO 5 mg DAILY JAXSON Administration Artificial Tears 3 drop 0
--- NOTE | 2023-01-28 12:19 | PM.DS ---
DS: Admitting Diagnosis Discharge Date 01/08/23 Admitting Diagnosis ams DS: Discharge Diagnosis Discharge Diagnosis (1) Unresponsive episode: Code(s): R40.4 - Transient alteration of awareness Status: Acute Assessment and Plan: Unsure of etiology, likely multifactorial MRI, EEG, all within normal limits Check head/neck CTA Echo cancelled Could be post ictal state, concussive state, suspect acute metabolic encephalopathy of unknown etiology (2) Confusion: Code(s): R41.0 - Disorientation, unspecified Status: Acute Assessment and Plan: Appears improved from yesterday Check TSH, B12, all wnl see above (3) Dementia: Qualifiers: Dementia type: Alzheimer's Alzheimer's disease onset: late-onset Dementia behavioral disturbance: with behavioral disturbance Qualified Code(s): G30.1 - Alzheimer's disease with late onset; F02.81 - Dementia in other diseases classified elsewhere with behavioral disturbance Code(s): F03.90 - Unspecified dementia, unspecified severity, without behavioral disturbance, psychotic disturbance, mood disturbance, and anxiety Status: Acute Assessment and Plan: Likely exacerbating current symptoms (4) Hypertension: Qualifiers: Hypertension type: primary hypertension Qualified Code(s): I10 - Essential (primary) hypertension Code(s): I10 - Essential (primary) hypertension Status: Acute Assessment and Plan: Blood pressures reviewed 01/08 (5) Stage 3a chronic kidney disease: Code(s): N18.31 - Chronic kidney disease, stage 3a Status: Acute Assessment and Plan: Monitor creatinine, stable Plan DVT prophylaxis with SCDs GI prophylaxis not indicated Code status DNR DS: Summary Hospital Course Hospital Course: 87-year-old female with history of dementia, hypertension, hyperlipidemia is presenting from assisted living with altered mental status. Unsure of etiology, likely multifactorial MRI, EEG, all within normal limits Check head/neck CTA Echo cancelled Could be post ictal state, concussive state, suspect acute metabolic encephalopathy of unknown etiology Patient was discharged in stable condition with close follow-up at rehab facility. Please see above and med rec for details. Time Spent with Patient Time attestation: Total time spent providing and/or coordinating discharge services: Exam Narrative: General: No acute distress, alert and oriented per baseline HEENT: Atraumatic, normocephalic, mucous membranes moist CV: Regular rate and rhythm, S1, S2 Lungs: Clear to auscultation bilaterally, no rales or crackles noted, no wheezes, good air entry Abdomen: Soft, nontender, nondistended Extremities: Normal to inspection Skin: No rashes noted, no lesions or wounds seen Psych: Difficult to assess Neuro: Cranial nerves 2-12 grossly intact, strength +5/5 upper and lower extremities bilaterally, no focal deficits Discharge Plan Discharge Attending physician on discharge: Valeri John Consulting providers: Kyle Ahn; Fatuma Dawn; Lobito Mary; Patrice Puckett V. Discharging Clinician: Valeri John Patient Disposition: SNF Activity: as tolerated Diet: as tolerated Discharge Instructions: Recommend increasing depakote to 250 mg BID id tolerates QHS dosing. Seroquel decreased to 12.5 mg for now, may need to increase to 25 mg. Will need referral to geriatric psychiatric for further management of dementia and hallucinations. Stand Alone Forms: General Discharge Information Follow-up/Referrals: Antwon Chavis, DO [Primary Care Provider] - Discharge Medications: Continued artificial tears solution Drops 3 drp OPHTHALMIC (EYE) DAILY neomycin-polymyxin B-dexameth Drops,Suspension 1 drp ophthalmic (eye) QID Rx Instructions: right eye No Action memantine 10 mg tablet 10 mg P
== END 2023-01-08 15:05 ==
LOC: ANHED 13:50 → ANH2MED 17:54
PROVIDERS: Physician Assistant; Preventive Medicine Aerospace Medicine; Admitting Provider Hospitalist; Emergency Provider Emergency Medicine; PCP Internal Medicine; Visit Provider Student in an Organized Health Care Education/Training Program
DX: R41.0 Disorientation, unspecified (principal); G30.1 Alzheimer's disease with late onset; F02.818 Dementia in other diseases classified elsewhere, unspecified severity, with other behavioral disturbance; R44.1 Visual hallucinations; R90.82 White matter disease, unspecified; M54.50 Low back pain, unspecified; R30.0 Dysuria; E11.69 Type 2 diabetes mellitus with other specified complication; R19.7 Diarrhea, unspecified; R12 Heartburn; K59.00 Constipation, unspecified; I12.9 Hypertensive chronic kidney disease with stage 1 through stage 4 chronic kidney disease, or unspecified chronic kidney disease; E11.22 Type 2 diabetes mellitus with diabetic chronic kidney disease; N18.31 Chronic kidney disease, stage 3a; I51.89 Other ill-defined heart diseases; Z20.822 Contact with and (suspected) exposure to COVID-19; E78.5 Hyperlipidemia, unspecified; K58.9 Irritable bowel syndrome, unspecified; H35.30 Unspecified macular degeneration; Z87.440 Personal history of urinary (tract) infections; Z66 Do not resuscitate; Z79.1 Long term (current) use of non-steroidal anti-inflammatories (NSAID); Z79.899 Other long term (current) drug therapy; Z83.3 Family history of diabetes mellitus
CPT/HCPCS: 36415; 70450; 70496; 70498; 70553; 80048; 80053; 80307; 81001; 82607; 82746; 83735; 84443; 85025; 85610; 85730; 87637; 93005; 93306; 95816; 96375; 97116; 97161; 97166; 97530; 99285; A9270; A9577; G0378; J1200; J2930; J7512; Q9967

== ENCOUNTER 2023-04-24 11:28 | Emergency (ER) | payer MEDICARE, OTHER, SELFPAY ==
[2023-04-24] VITALS (21 sets, daily range): BP systolic 116–135; BP diastolic 59–62; PULSE 75–83; RESP 12–21; TEMP 36.4; O2SAT 96–100
--- NOTE | 2023-04-24 14:45 | ED.GENADULT ---
HPI - General Adult General Chief complaint: Unspecified Stated complaint: COVID,UTI,Back Pain Time Seen by Provider: 04/24/23 13:10 Source: family Mode of arrival: ambulatory Limitations: clinical condition History of Present Illness HPI narrative: 87 years old white female came to the Emergency Room by a private car because of a fall twice since yesterday. Unwitnessed. Possible head injury, and severe back pain. Denies extremity injury. History of Alzheimer's, granddaughter at the bedside who is mad because she have little kids at home and can not wait anymore. Granddaughter is telling me that patient had COVID symptoms yesterday and tested positive at that time and started on Paxlovid Related Data Home Medications Medication Instructions Recorded Confirmed artificial tears solution eye drops 3 drp ophthalmic (eye) DAILY 05/01/22 01/26/23 neomycin-polymyxin B-dexameth eye 1 drp ophthalmic (eye) QID 01/05/23 01/26/23 drops,suspension Allergies Allergy/AdvReac Type Severity Reaction Status Date / Time iodine Allergy Mild HIVES Verified 01/26/23 09:11 codeine Allergy Unknown Nausea Verified 01/26/23 09:11 hydrocodone Allergy Unknown Nausea Verified 01/26/23 09:11 morphine Allergy Unknown Nausea Verified 01/26/23 09:11 Review of Systems Review of Systems: ROS unobtainable: Yes unobtainable due to medical condition PMFSH Past Medical History Medical History Hyperlipidemia Hypertension Irritable bowel syndrome Late onset Alzheimer's disease without behavioral disturbance Macular degeneration Measles Mumps Nephritis Osteoarthritis Prediabetes Stage 3a chronic kidney disease Surgical History Surgical History History of arthroplasty of left shoulder History of bilateral knee replacement History of cataract extraction Family History Family History Mother Diabetes mellitus Father Family history of lung cancer Social History Social History Social History: Surrogate medical decision maker: Angel Sanchez, son. Code status: Do not resuscitate. Smoking status: Never smoker Alcohol intake: never Substance use: never Substance use type: does not use Lack of Transportation: No Lack of Food: Never True Current Housing: I Have Housing Concerned About Future Housing: No Difficulty Paying Gas/Electric Bills: No Difficulty Paying for Meds: No Currently Unemployed: No Education: High School Diploma/GED Difficulty w/ Childcare or Family Care: No Living arrangements: assisted living Additional living arrangements comments: Originally from [facility]. Her was in [employer], they , and she moved state side. He has since . Today have has 2 children, a son and a daughter. Additional occupation/education comments: She used to work at [employer]. Spiritual care concerns: No Exam Narrative: General appearance: Well-developed, well-nourished. Patient does not look in pain or distress Skin: Normal color Head: Normocephalic, nontraumatic Eyes: Clear conjunctiva ENT: Mild oropharyngeal erythema Neck: Supple, nontender Chest and respiratory: Airway patent, no respiratory distress, no accessory muscle use Heart: Regular rate/rhythm Abdomen: Soft, nontender, no organomegaly, quiet bowel sounds Vascular: Normal peripheral pulses, normal capillary refill. Musculoskeletal: Normal range of motion, diffuse tenderness of the back thoracic and lumbar, no bruises, no rash or swelling or deformity Neurologic: Alert and oriented to her name only
--- NOTE | 2023-04-24 15:16 | PC.NURSE ---
pt granddaughter decided to have pt leave AMA after provider saw the pt. pt family member states the provider was very unprofessional and does not feel like receiving care here is best for their grandma. pt family member signed the AMA form and took pt out via wheelchair. family was given education on when going to the ED is needed
== END 2023-04-24 15:22 | disposition left against medical advice (07) ==
PROVIDERS: Emergency Provider Emergency Medicine; PCP Internal Medicine
DX: U07.1 COVID-19 (principal); E78.5 Hyperlipidemia, unspecified; M19.90 Unspecified osteoarthritis, unspecified site; I12.9 Hypertensive chronic kidney disease with stage 1 through stage 4 chronic kidney disease, or unspecified chronic kidney disease; N18.31 Chronic kidney disease, stage 3a
CPT/HCPCS: 99284

== ENCOUNTER 2023-04-28 13:11 | Emergency (ER) | payer MEDICARE, OTHER, SELFPAY ==
[2023-04-28 13:19] VITALS: BP 120/62; PULSE 74; RESP 16; TEMP 36.7; O2SAT 100
--- NOTE | 2023-04-28 14:05 | ED.GENADULT ---
HPI - General Adult General Chief complaint: Urogenital-Female Stated complaint: DIARRHEA/UTI SYMPTOMS S/P +COVID Time Seen by Provider: 04/28/23 14:05 Source: patient and RN notes reviewed Mode of arrival: ambulatory Limitations: dementia History of Present Illness HPI narrative: 87 y/o female with hx alzheimer's, CKD, HTN, IBS presented with son for c/o burning with urination, weakness, and diarrhea for one week. States diarrhea started after starting paxlovid, as she was dx with Covid one week ago. Took last dose of paxlovid today. Pt's son states she was recently in rehab but does not feel she has regained strength. Utilizing w/c. Denies cp, trouble breathing, vomiting. Pt is poor historian, information is provided by son. Pt states I am tired. Son stated pt was scheduled with pcp today, however when he arrived for the appointment he was told her appt is next week. Related Data Home Medications Medication Instructions Recorded Confirmed artificial tears solution eye drops 3 drp ophthalmic (eye) DAILY 05/01/22 01/26/23 neomycin-polymyxin B-dexameth eye 1 drp ophthalmic (eye) QID 01/05/23 01/26/23 drops,suspension Allergies Allergy/AdvReac Type Severity Reaction Status Date / Time iodine Allergy Mild HIVES Verified 01/26/23 09:11 codeine Allergy Unknown Nausea Verified 01/26/23 09:11 hydrocodone Allergy Unknown Nausea Verified 01/26/23 09:11 morphine Allergy Unknown Nausea Verified 01/26/23 09:11 Review of Systems Review of Systems: Pt is poor historian, ROS provided by son CONSTITUTIONAL: Denies fever; reports generalized weakness ENT: Denies rhinorrhea, congestion CARDIOVASCULAR: Denies chest pain, palpitations, or edema. RESPIRATORY: Reports cough Denies dyspnea. GASTROINTESTINAL: Endorses diarrhea. Denies abdominal pain, nausea, vomiting, hematochezia, melena, hematemesis GENITOURINARY: Denies dysuria, hematuria, or CVA tenderness. SKIN: Denies rash MUSCULOSKELETAL: Denies new back pain, joint pain, or myalgia. NEUROLOGIC: Denies headache, numbness, tingling, or weakness. All systems reviewed & are unremarkable except as noted in HPI and below PMFSH Past Medical History Medical History Hyperlipidemia Hypertension Irritable bowel syndrome Late onset Alzheimer's disease without behavioral disturbance Macular degeneration Measles Mumps Nephritis Osteoarthritis Prediabetes Stage 3a chronic kidney disease Surgical History Surgical History History of arthroplasty of left shoulder History of bilateral knee replacement History of cataract extraction Family History Family History Mother Diabetes mellitus Father Family history of lung cancer Social History Social History Social History: Surrogate medical decision maker: Angel Sanchez, son. Code status: Do not resuscitate. Smoking status: Never smoker Alcohol intake: never Substance use: never Substance use type: does not use Lack of Transportation: No Lack of Food: Never True Current Housing: I Have Housing Concerned About Future Housing: No Difficulty Paying Gas/Electric Bills: No Difficulty Paying for Meds: No Currently Unemployed: No Education: High School Diploma/GED Difficulty w/ Childcare or Family Care: No Living arrangements: assisted living Additional living arrangements comments: Originally from [facility]. Her was in [place], they , and she moved state side. He has since . Today have has 2 children, a son and a daughter. Additional occupation/education comments: She used to work at [employer]. Spiritual care concerns: No Comments At time of signature, I have reviewed and agree with nursing past medical, surgical, social and
== END 2023-04-28 14:23 | disposition left against medical advice (07) ==
PROVIDERS: Emergency Provider Nurse Practitioner Family; PCP Internal Medicine
DX: R53.1 Weakness (principal); E78.5 Hyperlipidemia, unspecified; H35.30 Unspecified macular degeneration; M19.90 Unspecified osteoarthritis, unspecified site; I12.9 Hypertensive chronic kidney disease with stage 1 through stage 4 chronic kidney disease, or unspecified chronic kidney disease; N18.30 Chronic kidney disease, stage 3 unspecified; R73.03 Prediabetes; G30.1 Alzheimer's disease with late onset; F02.80 Dementia in other diseases classified elsewhere, unspecified severity, without behavioral disturbance, psychotic disturbance, mood disturbance, and anxiety; Z96.653 Presence of artificial knee joint, bilateral
CPT/HCPCS: 81003; 87086; 87088; 99213; G0463

== ENCOUNTER 2023-05-04 13:34 | Outpatient (CLI) | payer MEDICARE, OTHER, SELFPAY ==
[2023-05-04 19:50] LABS: Basophils Absolute Auto 0.1 K/mm3 (0.0-0.1); Basophils Percent Auto 0.5 % (0.2-1.2); Eosinophils Absolute Auto 0.1 K/mm3 (0-0.3); Eosinophils Percent Auto 0.6 % (0-4.4); Hematocrit 40.5 % (37.0-47.0); Hemoglobin 12.8 g/dL (12.0-15.0); Immature Granulocyte Absolute 0.03 K/mm3 (0.00-0.031); Immature Granulocyte Percent A 0.3 % (0-0.5); Lymphocytes Absolute Auto 2.05 K/mm3 (0.9-3.2); Lymphocytes Percent Auto 19.7 % (18.3-44.2); Mean Corpuscular HGB Conc 31.6 g/dl (32-36); Mean Corpuscular Hemoglobin 31.1 pg (26-34); Mean Corpuscular Volume 98.3 fl (80-100); Monocytes Absolute Auto 0.8 K/mm3 (0.1-0.6); Monocytes Percent Auto 7.2 % (2.6-8.5); Neutrophils Absolute Auto 7.4 K/mm3 (1.3-6.7); Neutrophils Percent Auto 71.7 % (45.5-73.1); Platelet Count Result 429 k/mm3 (150-375); Red Blood Count 4.12 M/mm3 (4.2-5.4); Red Cell Distribution Width 13.6 % (11.5-14.5); White Blood Count 10.4 K/mm3 (4.5-10.0)
[2023-05-04 20:24] LABS: Alanine Aminotransferase 32 U/L (6-35); Albumin Level 4.1 g/dL (3.5-5.1); Alkaline Phosphatase 89 U/L (38-126); Anion Gap 8 mmol/L (8-16); Aspartate Amino Transferase 40 U/L (14-36); Bilirubin,Total 0.4 mg/dL (0.2-1.3); Blood Urea Nitrogen 19 mg/dL (7-17); Calcium 10.1 mg/dL (8.4-10.2); Carbon Dioxide 31 mmol/L (22-30); Chloride 102 mmol/L (98-107); Estimated Glomerular Filt Rate 42; Glucose 112 mg/dL (65-110); Potassium 4.4 mmol/L (3.4-5.0); Sodium 141 mmol/L (137-145)
== END 2023-05-04 13:35 | disposition home or self-care (01) ==
LOC: ANHGOSHLAB 13:36
PROVIDERS: PCP Internal Medicine; Visit Provider Clinical Nurse Specialist
DX: G93.41 Metabolic encephalopathy (principal); N18.31 Chronic kidney disease, stage 3a
CPT/HCPCS: 36415; 80053; 85025

== ENCOUNTER 2023-05-12 16:56 | Emergency (ER) | payer MEDICARE, OTHER, SELFPAY ==
--- NOTE | 2023-05-12 17:12 | PC.NURSE ---
pts family up to desk with pt. states she is [facility] to [facility] since we are so busy
== END 2023-05-12 19:11 | disposition left against medical advice (07) ==
LOC: ANHED 17:55
PROVIDERS: PCP Internal Medicine
DX: Z53.21 Procedure and treatment not carried out due to patient leaving prior to being seen by health care provider (principal)
CPT/HCPCS: 99199

== ENCOUNTER 2023-08-10 12:39 | Outpatient (CLI) | payer MEDICARE, OTHER, SELFPAY ==
[2023-08-10 18:49] LABS: Basophils Absolute Auto 0.1 K/mm3 (0.0-0.1); Basophils Percent Auto 0.5 % (0.2-1.2); Eosinophils Percent Auto 0.3 % (0-4.4); Hematocrit 44.1 % (37.0-47.0); Immature Granulocyte Absolute 0.02 K/mm3 (0.00-0.031); Immature Granulocyte Percent A 0.2 % (0-0.5); Lymphocytes Absolute Auto 2.64 K/mm3 (0.9-3.2); Lymphocytes Percent Auto 24.6 % (18.3-44.2); Mean Corpuscular HGB Conc 31.7 g/dl (32-36); Mean Corpuscular Hemoglobin 30.7 pg (26-34); Mean Corpuscular Volume 96.7 fl (80-100); Mean Platelet Volume 11.5 fl (7.4-10.4); Monocytes Absolute Auto 0.7 K/mm3 (0.1-0.6); Monocytes Percent Auto 6.3 % (2.6-8.5); Neutrophils Absolute Auto 7.3 K/mm3 (1.3-6.7); Neutrophils Percent Auto 68.1 % (45.5-73.1); Platelet Count Result 256 k/mm3 (150-375); Red Blood Count 4.56 M/mm3 (4.2-5.4); Red Cell Distribution Width 13.4 % (11.5-14.5); White Blood Count 10.7 K/mm3 (4.5-10.0)
[2023-08-10 20:09] LABS: Anisocytosis 1+; Atypical Lymphocytes Present; Platelet Estimate Adequate (Adequate); Poikilocytosis 1+; Schistocytes None Seen
[2023-08-10 20:27] LABS: Alanine Aminotransferase 17 U/L (6-35); Albumin Level 4.5 g/dL (3.5-5.1); Alkaline Phosphatase 67 U/L (38-126); Anion Gap 11 mmol/L (4-12); Aspartate Amino Transferase 32 U/L (14-36); Bilirubin,Total 0.5 mg/dL (0.2-1.3); Blood Urea Nitrogen 37 mg/dL (7-17); Calcium 9.9 mg/dL (8.4-10.2); Carbon Dioxide 24 mmol/L (22-30); Chloride 106 mmol/L (98-107); Estimated Glomerular Filt Rate 27; Glucose 99 mg/dL (65-110); Potassium 4.5 mmol/L (3.4-5.0); Sodium 141 mmol/L (137-145)
[2023-08-10 21:25] LABS: Folic Acid 6.7 ng/mL (2.76->20)
== END 2023-08-10 12:40 | disposition home or self-care (01) ==
LOC: ANHGOSHLAB 12:43
PROVIDERS: PCP Internal Medicine; Visit Provider Internal Medicine Nephrology
DX: E55.9 Vitamin D deficiency, unspecified (principal); G30.1 Alzheimer's disease with late onset; F02.80 Dementia in other diseases classified elsewhere, unspecified severity, without behavioral disturbance, psychotic disturbance, mood disturbance, and anxiety; I12.9 Hypertensive chronic kidney disease with stage 1 through stage 4 chronic kidney disease, or unspecified chronic kidney disease; N18.9 Chronic kidney disease, unspecified
CPT/HCPCS: 36415; 80053; 82607; 82746; 84443; 85025

== ENCOUNTER 2023-11-01 20:33 | Emergency (ER) | payer MEDICARE, OTHER, SELFPAY ==
[2023-11-01] VITALS (8 sets, daily range): BP systolic 144–169; BP diastolic 68–97; PULSE 84–95; RESP 13–20; TEMP 36.8; O2SAT 87–100
--- NOTE | ~2023-11-01 | CT_ITS ---
EXAMINATION: CT brain wo con DATE: 11/01/2023 21:27 INDICATION: fall . TECHNIQUE: Computed tomography (CT) of the head was performed without intravenous contrast. The mA wa s adjusted according to patient size. Iterative reconstruction technique was employed. The dose-lengt h product was 605.33 mGy-cm. COMPARISON: 01/08/2023. FINDINGS: No acute intracranial hemorrhage or extra-axial fluid collection. No hydrocephalus, mass, or herniation. No acute ischemic infarct. Unremarkable dural venous sinus attenuation. No acute osseous abnormality. The aerated spaces are clear. Moderate atrophy and chronic white matter change. Atherosclerotic intracranial calcification. Bilater al lens replacements. IMPRESSION: No acute intracranial process. Reviewed, dictated and finalized at location K.
--- NOTE | ~2023-11-01 | CT_ITS ---
EXAMINATION: CT cervical spine wo con DATE: 11/01/2023 21:36 INDICATION: fall TECHNIQUE: Computed tomography (CT) of the cervical spine was performed without intravenous contrast. Automated exposure control and iterative reconstruction technique were employed. The dose-length pro duct was 190.99 mGy-cm. COMPARISON: CTA brain . FINDINGS: Vertebral Body Alignment: Intact. Stable trace multilevel listheses likely on a degenerative basis. Craniocervical and atlantoaxial alignment: Moderate degenerative change. Alignment intact. Osseous structures/fracture: No evidence of a lytic or blastic process in the visualized spine. No e vidence of acute fracture. Cervical soft tissues: The paraspinal soft tissues planes are maintained. Degenerative changes: Degenerative changes, without severe neural foraminal or central canal narrowin g. IMPRESSION: No acute fracture or traumatic malalignment in the cervical spine. Reviewed, dictated and finalized at location K.
--- NOTE | 2023-11-01 21:13 | ED.FALL ---
HPI - Fall General Chief Complaint: Fall Stated Complaint: FALL Time Seen by Provider: 11/01/23 20:40 Source: EMS Mode of arrival: EMS History of Present Illness HPI Narrative: 88 years old white female memory care unit, ground fall, found by snf staff on the floor face down, patient was complaining of headache and neck pain, C-collar applied on arrival to the ED patient denies all complaints. Patient is awake and oriented to her name and sometime to her age only confused to time and situation and that is her baseline. Patient unable to explain what happened Related Data Home Medications Medication Instructions Recorded Confirmed cyclosporine 0.05 % eye drops in a 1 drp EACH EYE Q12H 08/24/23 10/18/23 dropperette Allergies Allergy/AdvReac Type Severity Reaction Status Date / Time iodine Allergy Mild HIVES Verified 08/19/23 10:40 codeine Allergy Unknown Nausea Verified 08/19/23 10:40 hydrocodone Allergy Unknown Nausea Verified 08/19/23 10:40 morphine Allergy Unknown Nausea Verified 08/19/23 10:40 Review of Systems Review of Systems: ROS unobtainable: Yes unobtainable due to mental status PMFSH Past Medical History Medical History Hyperlipidemia Hypertension Irritable bowel syndrome Late onset Alzheimer's disease without behavioral disturbance Macular degeneration Measles Mumps Nephritis Osteoarthritis Prediabetes Recurrent UTI (urinary tract infection) Stage 3a chronic kidney disease Surgical History Surgical History History of arthroplasty of left shoulder History of bilateral knee replacement History of cataract extraction Family History Family History Mother Diabetes mellitus Father Family history of lung cancer Social History Social History Social History: Surrogate medical decision maker: Angel Sanchez, son. Code status: Do not resuscitate. Smoking status: Never smoker Alcohol intake: never Substance use: never Substance use type: does not use Do You Feel Safe in your Home?: Yes Lack of Transportation: No Lack of Food: Never True Current Housing: I Have Housing Concerned About Future Housing: No Difficulty Paying Gas/Electric Bills: No Difficulty Paying for Meds: No Currently Unemployed: No Education: High School Diploma/GED Difficulty w/ Childcare or Family Care: No Living arrangements: assisted living Additional living arrangements comments: Originally from [facility]. Her was in [employer], they , and she moved state side. He has since . Today have has 2 children, a son and a daughter. Occupation/Education: retired Additional occupation/education comments: She used to work at [employer]. Gender identity (if verbalized by the patient): Female Spiritual care concerns: No Exam Narrative: General appearance: Well-developed, Skin: Normal color Head: Normocephalic, nontraumatic Eyes: Clear conjunctiva ENT: Oropharynx normal, ears normal, nose normal Neck: C-collar on Chest and respiratory: Airway patent, no respiratory distress, no accessory muscle use Heart: Regular rate/rhythm Abdomen: Soft, nontender, no organomegaly, quiet bowel sounds Vascular: Normal peripheral pulses, normal capillary refill. Musculoskeletal: Normal range of motion, nontender back Neurologic: Alert and oriented to her name and age only Course Vital Signs Vital signs: Vital Signs Pulse Rate 93 11/01/23 20:46 Res
== END 2023-11-02 00:57 ==
PROVIDERS: Emergency Provider Emergency Medicine; PCP Internal Medicine
DX: S09.90XA Unspecified injury of head, initial encounter (principal); M54.2 Cervicalgia; E78.5 Hyperlipidemia, unspecified; G30.1 Alzheimer's disease with late onset; F02.80 Dementia in other diseases classified elsewhere, unspecified severity, without behavioral disturbance, psychotic disturbance, mood disturbance, and anxiety; I12.9 Hypertensive chronic kidney disease with stage 1 through stage 4 chronic kidney disease, or unspecified chronic kidney disease; N18.31 Chronic kidney disease, stage 3a; W19.XXXA Unspecified fall, initial encounter
CPT/HCPCS: 70450; 72125; 99284